=== PATIENT | male | born 1990 | race Two or more races ===

== ENCOUNTER → 2019-11-27 | Outpatient (CLI) | payer OTHER ==
[2019-11-27 13:10] LABS: ALANINE AMINOTRANSFERASE 27 U/L (12-78); CREATININE 0.87 mg/dL (0.7-1.3)
== END | disposition home or self-care (01) ==
LOC: CFH 11:15
PROVIDERS: ATTEND Nurse Practitioner Family
DX: R56.9 Unspecified convulsions (principal)
CPT/HCPCS: 36415; 80177; 82565; 84450; 84460; 84520

== ENCOUNTER 2020-03-29 23:50 | Emergency (ER) | payer OTHER ==
[~2020-03-29] VITALS: Ht 172.7 cm; Wt 94.5 kg
--- NOTE | 2020-03-30 00:19 | NUR ---
TASK RN: PT TO ROOM FROM TRIAGE VIA WHEELCHAIR. ASSISTED TO ELIAS BY THALIA [facility]OM PRECAUTIONS IN PLACE.
[2020-03-30 00:48] LABS: BASOPHILS # (AUTO) 0.03 x10^3/uL (0-0.1); BASOPHILS % (AUTO) 0 % (0-1); EOSINOPHILS % (AUTO) 5 % (1-7); LYMPHOCYTES # (AUTO) 1.18 x10^3/uL (1-3.4); LYMPHOCYTES % (AUTO) 14 % (22-44); MD NO; MEAN CORPUSCULAR HEMOGLOBIN 29.2 pg (27.5-34.5); MEAN CORPUSCULAR HGB CONC 33.9 g/dL (33.2-36.2); MEAN CORPUSCULAR VOLUME 86.3 fL (81-97); MEAN PLATELET VOLUME 9.5 fL (7.4-10.4); MONOCYTES # (AUTO) 0.54 x10^3/uL (0.2-0.8); MONOCYTES % (AUTO) 6 % (2-9); NEUTROPHILS # (AUTO) 6.56 x10^3/uL (1.8-6.8); NEUTROPHILS % (AUTO) 75 % (42-75); PLATELET COUNT 190 x10^3/uL (130-400); RED BLOOD COUNT 4.98 x10^6/uL (4.38-5.82); RED CELL DISTRIBUTION WIDTH 14.1 % (9.4-14.8)
[2020-03-30 00:56] LABS: ALBUMIN 3.4 g/dL (3.4-5.0); ANION GAP 3 mmol/L (5-15); CALCIUM 8.1 mg/dL (8.5-10.1); CHLORIDE 105 mmol/L (98-107); CREATININE 1.03 mg/dL (0.7-1.3)
[2020-03-30] MEDS ORDERED: LEVETIRACETAM 1,000 MG in SODIUM CHLORIDE 0.9% 100 ML IV ONE (01:00)
[2020-03-30] MEDS ORDERED: LEVETIRACETAM 1,500 MG in SODIUM CHLORIDE 0.9% 100 ML IV ONE (01:00)
[2020-03-30] MEDS ORDERED: ACETAMINOPHEN 500 MG TABLET PO ONE (02:00)
[2020-03-30] MEDS ORDERED: KETOROLAC 30 MG/1 ML IVPush ONE (02:00)
[2020-03-30] MEDS ORDERED: KETOROLAC 30 MG/1 ML ONE (02:14)
[2020-03-30] MEDS ORDERED: ACETAMINOPHEN 500 MG TABLET ONE (02:14)
[2020-03-30 02:20] VITALS: BP 110/66
== END 2020-03-30 02:38 | disposition home or self-care (01) ==
LOC: ED 03-30 00:57
DX: R56.9 Unspecified convulsions (principal); R51 Headache; R55 Syncope and collapse
CPT/HCPCS: 36415; 70450; 80048; 80164; 80307; 82040; 85025; 96374; 96375; 99284; J1885; J1953